=== PATIENT | male | born 1970 | race Caucasian/White ===

== ENCOUNTER 2019-07-25 07:06 | Day surgery (SDC) | payer BC, OTHER, SELFPAY ==
--- NOTE | 2019-07-24 17:21 | HP.PCM_ITS ---
History and Physical Date of Admission: 07/25/19 HISTORY AND PHYSICAL ? Dandy [place] 1970 ? REFERRING PHYSICIAN:???Ike Jin ? CHIEF COMPLAINT:??Abnormal CT scan findings ? HPI: The patient is a 49 year old male referred for endoscopy. ?Dandy note?onset of upper respiratory infection while he was on vacation in [place] 2 weeks previously. ?A CT scan of the chest was obtained which demonstrated no specific chest abnormalities but demonstrated was felt to be multiple ill- defined lesions in his liver up to 5 cm and all lobes. ?This was interpreted as extensive metastatic disease liver with clear lungs ? The patient then underwent CT scan of the abdomen and pelvis on July 19, 2019. ?This demonstrated again multiple liver lesions consistent with metastatic disease throughout.??Listed as normal pancreas normal adrenal glands scattered retroperitoneal lymph nodes no obvious abnormalities noted within the GI tract. ? The patient had multiple laboratory studies that obtained. ?This included AFP - ?1.6 within normal range,?[id number],??low serum iron levels,?[id number],??complete blood count demonstrated mild anemia and a mildly elevated white blood cell count from June 18, ?asymmetric metabolic panel from that date was relatively unremarkable. ? The patient was seen today by Dr. Ike Jin. ?The patient is being scheduled undergo ultrasound-guided liver biopsy I was asked to perform upper and lower endoscopy to assess for any occult GI source. ?Also to discuss consideration of Port-A-Cath placement pending outcome of liver biopsy, endoscopy, and plans for treatment anticipating vascular access will be required. ? The patient?has not had previous endoscopy. ? My review the CT scan images. ?There was an abnormal area just beyond the ampulla of Vater in the second to third portion of the duodenum. ? The patient is being seen by me today at the request of ?for my opinion and advice regarding liver metastases from unknown primary.? ? ? PAST?MEDICAL?HISTORY PAST MEDICAL HISTORY Diagnosis Date ? Hypercholesteremia ? ? ? PAST?SURGICAL?HISTORY PAST SURGICAL HISTORY Procedure Laterality Date ? FOOT SURGERY HX ? ? ? KNEE ARTHROSCOPY Right ? ? ? CURRENT?MEDICATIONS ? Current Outpatient Medications: atorvastatin (LIPITOR) 40 mg tablet Take 40 mg by mouth once daily. ? No current facility-administered medications for this visit.? ? ALLERGIES:?Penicillins ? PERSONAL HISTORY:? SOCIAL?HISTORY Social History ??Socioeconomic History ?Marital status: ?Spouse name: Not on file ?Number of children: Not on file ?Years of education: Not on file ?Highest education level: Not on file ??Occupational History ?Not on file ??Social Needs ?Financial resource strain: Not on file ?Food insecurity: ?Worry: Not on file ?Inability: Not on file ?Transportation needs: ?Medical: Not on file ?Non-medical: Not on file ??Tobacco Use ?Smoking status: Never Smoker ?Smokeless tobacco: Never Used ??Substance and Sexual Activity ?Alcohol use: Yes ?Frequency: 2-4 times a month ?Comment: occassional ?Drug use: Never ?Sexual activity: Yes ?Partners: Female ? control/protection: Tubal Ligation ??Lifestyle ?Physical activity: ?Days per week: Not on file ?Minutes per session: Not on file ?Stress: Not on file ??Relationships ?Social connections: ?Talks on phone: Not on file ?Gets together: Not on file ?Attends pentecostalism service: Not on file ?Active member of club or organization: Not on file ?Attends meetings of clubs or organizations: Not on file ?Relationship status: Not on file ?Intimate partner violence: ?Fear of current or ex partner: Not on file ?Emotionally abused: Not on file ?Physically abused: Not on file ?Forced sexual activity: Not on file ??Other Topics ?Concerns: ?Not on file ??Social History Narrative ?Not on file ? FAMILY HISTORY:? FAMILY?HISTORY FAMILY HISTORY Problem Relation Age of Onset ? Hypertension Mother ? ? REVIEW OF SYMPTOMS: ??The review of systems data was entered by the nurse and reviewed by me ? Nursing Notes: Evan Liz ?07/20/2019 ?4:19 PM ?Signed REVIEW OF SYSTEMS: ?General:???The patient NOTES fatigue, NOTES weight loss, denies weight gain, NOTES feeling hot, and NOTES feelings of cold. ?Eyes: ?The patient denies glaucoma, notes eye injury/surgery, does not wear glasses or contacts. ?Ear/Nose/Throat: ?The patient denies allergies, denies hayfever, denies ear infections, and denies bloody noses. ?Cardiovascular: ?The patient denies chest pain, denies heart disease, denies high blood pressure,denies cardiac stent, denies prior heart attack, denies irregular heart beat, NOTES high cholesterol, ?denies poor circulation, denies heart failure, other cardiac issues, denies claudication, denies cold feet, denies peripheral arterial stent. ?Respiratory: ?The patient denies tuberculosis, denies pneumonia, denies frequent cough, denies pulmonary embolism, denies shortness of breath, and denies coughing up blood. ?Gastrointestinal: ?The patient denies difficulty swallowing, denies acid reflux, denies ulcers, denies vomiting, denies jaundice/hepatitis, denies gallbladder problems, denies black or tarry stools, denies hemorrhoids, denies bleeding from rectum, denies diverticulitis, denies constipation, denies diarrhea, denies loss of stool control, and denies hernias. ?Kidney/Bladder: ?The patient denies kidney stones, denies urine infections, and denies bloody urine. ?Skin: ?The patient denies a history of skin cancer, denies bleeding/changing moles, and denies a history of skin rash. ?Neurologic: ?The patient denies a history of epilepsy/convulsions, denies headaches, denies head/spinal injuries, and denies stroke/TIA. ?Psychiatric: ?The patient denies psychiatric medications, denies depression, and denies voices, denies substance abuse. ?Endocrine: ?The patient denies thyroid disorders, denies diabetes, and denies hormonal problems. ?Hematologic: ?The patient denies a history of bruising, denies bleeding, and denies anemia, denies blood clots. ?Infections: ?The patient denies a history of measles and mumps, denies rheumatic fever, and denies sexually transmitted diseases. ?Musculoskeletal: ?The patient denies back pain/injury, denies back problems, denies sciatica, denies knee/foot trouble, denies arthritis, or denies gout. ? ? When was patient's last Mammogram screening? N/A ? ?Last Colonoscopy: ?NA ? ? Evan Liz ? PHYSICAL EXAMINATION: ? General: ?The patient is 49 year old male, well nourished, well hydrated in no acute distress. ?The patient is oriented to time, place, and person. ? VITALS:?Blood pressure 138/94, pulse 85, temperature 36.4 ?C (97.5 ?F), temperature source Temporal Artery, height 182.9 cm (6'), weight 95.7 kg (211 lb).?Body mass index is 28.62 kg/m?.? ? HEENT: ?Normal cephalic, ataumatic, pupils are equally round, sclera are anicteric, mucous membranes are moist, oropharynx is clear. ?Neck has no masses, asymmetry or lymphadenopathy. ?Thyroid is unremarkable. ? Respiratory: ?Clear to auscultation and percussion. ?Normal respiratory excursion and pattern. ? Cardiac: ?Examination is regular rate and rhythm. ? Abdominal exam: ?Soft, nontender, ?with no palpable masses. ?No hepatosplenomegaly. ?No palpable hernias. ? Rectal exam:?exam deferred ? Extremities: ?no clubbing, cyanosis or edema. ?No adenopathy. ? Other: ? LABORATORY VALUES: As Noted ? RADIOLOGIC STUDIES: ?As Noted ? Assessment ? IMPRESSION:?Liver?metastases, unknown primary ? PLAN: ?I plan to perform upper and lower?endoscopy. ??We discussed the risks and benefits of the planned endoscopy. ?I have informed the patient that complications can occur including failure to complete the endoscopy and perforation. ?The patient had the opportunity to ask questions concerning the planned endoscopy. ?My staff has also explained the procedure to the patient in understandable terms and has given the patient printed material concerning the procedure. ?The patient freely consents to surgery. ? I plan to use golytely bowel preparation for endoscopy ? ? Anticipated near future we will also plan for placing a Port-A-Cath. ?The patient is right handed. ? I plan to perform a left-sided Port-A-Cath.??The planned surgical procedure was discussed extensively with the patient. The risks, benefits and anticipated outcomes of the procedure, the risks and benefits of the alternatives to the procedure, and the roles and tasks of the personnel to be involved, were discussed with the patient. ?My staff has also explained the procedure in understandable terms and the patient was given the option to take printed material concerning the planned procedure. ?The patient had the opportunity to a sk questions concerning the planned procedure. ?The patient freely consents to the planned procedure. ? Anticipated Surgical Procedure/ CPT Code:?left??Subclavian portacath - 88987-519 and Fluoroscopic for vascular access - 01287-233-28 ? Anticipated Anesthetic:?MAC with local ? Patient weight:??Blood pressure 138/94, pulse 85, temperature 36.4 ?C (97.5 ?F), temperature source Temporal Artery, height 182.9 cm (6'), weight 95.7 kg (211 lb).?BMI: ?Body mass index is 28.62 kg/m?. ? Planned antibiotic:?clindamycin 900mg IVPB control officer manager to OR ? SCDs needed -?Yes ? Human Resources Designate Needed -?No ? Diagnoses:?(R16.0) Liver mass ?(primary encounter diagnosis) ? My findings have been communicated to ?via shared medical record. ?This note will be forwarded to Dr. Brennan Balbuena MD. ?? Return to Clinic: The patient is instructed to follow-up with me?after the testing has been completed. ? Gianni Trejo MD
[2019-07-25 07:51] VITALS: BP 132/97; PULSE 91; RESP 16; TEMP 36.9; O2SAT 99; BMI 28.2
[2019-07-25] MEDS: Lactated Ringers 1,000 ML 100 ML IV (08:08)
[2019-07-25] MEDS: Bupivacaine Mpf 0.5% 30 ML VIAL (08:48)
--- NOTE | 2019-07-25 08:58 | OP.PCM_ITS ---
Report of Operation Date of Procedure: 07/25/19 Pre-Operative Diagnosis: metastatic colon cancer Post-Operative Diagnosis: metastatic colon cancer - successful left subclavian portacath - Surgery/Procedure Performed:: left subclavian portacath - Bard Power port [id number] Ref - [id number] - exp 12/07/2020, with fluoroscopy Type of Anesthesia:: Local MAC Anesthesiologist: Charlie Garcia - ASA2 Estimated Blood Loss (mL): 10 Fluids Replaced: 500 Description of Procedure: The patient was brought to the operating suite. The left subclavian site was marked in the holding area and the patient concurred this was the planned operative site. Sign was performed verifying patient, site, position, skip antibiotic prophylaxis-2 g of Ancef and DVT prophylaxis with SCDs. Following IV sedation, the left neck and chest were prepped and draped in the usual fashion. Timeout was performed verifying patient, site, position. Local anesthetic was injected and a Seldinger needle was used to access the left subclavian vein without difficulty. Under fluoroscopic control, a guidewire was inserted and advanced the SVC RA region. Local anesthetic was injected and incision made and pocket created for the port site. Next the catheter was tunneled from the wire site incision to the port site incision. Under fluoroscopic control introducer sheath and dilator were inserted over the wire. The wire and dilator removed. The catheter was fed through the introducer suture sheath and adjusted to the SVC RA region. There was good return of venou s blood and easy inflow of saline through the system. Fluoroscopy demonstrated good positioning of the catheter. Next the catheter was cut to length affixed to the port with the locking ring and secured in the pocket with 2-2-0 Prolene sutures. Subcutaneous fat closed with interrupted 3-0 Vicryl suture. Skin closed with 4-0 Biosyn interrupted and running subcuticular sutures. Fluoroscopy demonstrated good position of the system. The port was accessed. There was good return of venous blood. Inflow of saline was easy. The port was then flushed with 2-3 cc of 100 unit per heparin solution. A dressing was applied. The patient was brought to recovery room in stable condition. Grafts/Implants Used: Bard Power port [id number] Ref - [id number] - exp 12/07/2020
--- NOTE | 2019-07-25 09:01 | DCINST_ITS ---
Discharge Diet: No Restrictions - Pain medication may cause nausea. You should typically eat light foods as you take your pain medication. Discharge Activity: Return to Normal Activity, May Shower - with the bandage in place 1-2 days after surgery. DO NOT SHOWER WHEN YOUR PORT IS ACCESSED. Additional Activity Instructions:: May not drive, work with heavy equipment, or sign legal documents for [address] if you are no longer taking narcotic pain medications. You may drive when you are no longer taking pain medications. Additional Dressing/Incision Instructions:: Leave the bandage on for 2-3 days. When you remove the bandage, leave the steri-strips intact until they fall off. Allergies/Adverse Reactions: Allergies Penicillins [PCN] Allergy (Verified 07/25/19 07:50) Rash Medications to take at Discharge Atorvastatin Calcium [Lipitor] 40 mg PO DAILY 07/24/19 Oxycodone HCl/Acetaminophen [Percocet 5/325] 1 tab PO Q4H PRN PRN #10 tab 07/25/19 The following prescriptions were given: Oxycodone HCl/Acetaminophen [Percocet 5/325] 1 tab PO Q4H PRN PRN #10 tab PRN Reason: Pain Prescription Printed Primary Care Physician: Brennan Balbuena MD [Primary Care Provider] - Test Results: Test results from this visit will be discussed in further detail at your follow- up appointment, if applicable. Please Follow Up With: Gianni Trejo MD - [phone] When: Please plan to follow up in 7 days in the office.
[2019-07-25 09:02] VITALS: BP 112/74; BP 132/97; PULSE 82; RESP 15; TEMP 36.7; O2SAT 98
--- NOTE | 2019-07-25 09:03 | RAD_ITS ---
STUDY: X-RAY CHEST REASON FOR EXAM: Male, 49 years old. Chest port placement TECHNIQUE: Single AP portable view of the chest. COMPARISON: None. FINDINGS: Left subclavian chest port with tip of the catheter overlying the junction of the right atrium and superior vena cava with no pneumothorax. The lungs are clear and expanded. There is no demonstrated pleural abnormality. There is moderate cardiac enlargement. Normal mediastinum and lauri. Normal visualized pulmonary arteries. Normal visualized aortic arch and descending thoracic aorta. Normal visualized thoracic spine. Normal visualized ribs, clavicles, and shoulders. There is no demonstrated abnormality of the visualized soft tissue structures of the upper abdomen. RAD/CXR for Line Placement IMPRESSION: Left subclavian chest port with tip of the catheter overlying the junction of right atrium and superior vena cava with no pneumothorax. Electronically Signed: Gianni Ordonez MD at 9:26 EDT Tel , Service support ,
[2019-07-25 09:10] VITALS: BP 115/77; BP 132/97; PULSE 79; RESP 16; O2SAT 95
[2019-07-25 09:15] VITALS: BP 111/81; BP 132/97; PULSE 80; RESP 16; O2SAT 98
[2019-07-25 09:21] VITALS: BP 103/80; BP 132/97; PULSE 78; RESP 16; TEMP 36.9; O2SAT 99
[2019-07-25 10:30] VITALS: BP 132/97
== END 2019-07-25 10:30 | disposition home or self-care (01) ==
LOC: SDC 07:12 → AC 07:13
PROVIDERS: Family Provider Internal Medicine; PCP Internal Medicine; Referring Provider Surgery; Visit Provider Surgery
PROC: (CPT 36561; principal; 2019-07-25 08:30)
DX: Z45.2 Encounter for adjustment and management of vascular access device (principal); C18.9 Malignant neoplasm of colon, unspecified; C78.7 Secondary malignant neoplasm of liver and intrahepatic bile duct; E78.00 Pure hypercholesterolemia, unspecified; I10 Essential (primary) hypertension; Z88.0 Allergy status to penicillin; Z79.899 Other long term (current) drug therapy
CPT/HCPCS: 00532; 36561; 71045; 77001; J7120; C1788